=== PATIENT | female | born 1970 | race Caucasian/White ===

== ENCOUNTER 2016-08-17 20:59 | Emergency (ER) | payer MEDICAID ==
[~2016-08-17] VITALS: Ht 157.5 cm; Wt 67.0 kg
[~2016-08-17 20:59] MED LIST: HYDR-3498 PO; IBUP-1542 PO
[2016-08-17 21:03] VITALS: Ht 157.5 cm; Wt 67.0 kg
[2016-08-17] MEDS ORDERED: LIDOCAINE 1% (MDV) 20 ML INJ SC ONE (23:00)
--- NOTE | 2016-08-17 23:03 | ERD ---
ER Documentation Chief Complaint Date/Time DATE: 08/17/16 TIME: 22:59 Chief Complaint pain/swelling/redness left buttock x 5 days HPI 45-year-old female presents here in emergency department for complaints of left buttock redness swelling and pain for 5 days. Patient described the pain as throbbing pain, 6/10 scale, is worse upon sitting down. Patient did not take any medications to help with symptoms. Patient denies any fever or chills. Patient denies any rectal pain. Patient denies any constipation. Patient denies any blood in his stool or black stool. Patient denies any redness or swelling of the body. ROS All systems reviewed and are negative except as per history of present illness. Medications Home Meds Active Scripts Hydrocodone Bit-Acetaminophen* ([place]*) 5-325 Mg Tab, 1 TAB PO Q6 Y for PAIN, # 7 TAB Prov:PILI HERNANDEZ PA-C 11/19/15 Ibuprofen* (Motrin*) 600 Mg Tab, 600 MG PO Q6, #20 TAB Prov:PILI HERNANDEZ PA-C 11/19/15 Allergies Allergies: Coded Allergies: No Known Drug Allergies (Verified Allergy, Unknown, 08/17/16) PMhx/Soc Medical and Surgical Hx: pt denies Medical Hx, pt denies Surgical Hx History of Surgery: No Anesthesia Reaction: No Hx Neurological Disorder: No Hx Respiratory Disorders: No Hx Cardiac Disorders: No Hx Psychiatric Problems: No Hx Miscellaneous Medical Probl: No Hx Alcohol Use: No Hx Substance Use: No FmHx Family History: No coronary disease, No diabetes, No other Physical Exam Vitals Vital Signs Date Time Temp Pulse Resp B/P Pulse Ox O2 Delivery O2 Flow Rate FiO2 08/17/16 21:03 98.1 96 20 109/74 98 Physical Exam GENERAL: The patient is well developed and appropriate for usual state of health, in no apparent distress. CHEST: Clear to auscultation bilaterally. There are no rales, wheezes or rhonchi. HEART: Regular rate and rhythm. No murmurs, clicks, rubs or gallops. No S3 or S4. ABDOMEN: Soft, nontender and nondistended. Good bowel sounds. No rebound or guarding. No gross peritonitis. No gross organomegaly or masses. No Jean sign or McBurney point tenderness. BACK: No midline or flank tenderness. EXTREMITIES: Equal pulses bilaterally. There is no peripheral clubbing, cyanosis or edema. No focal swelling or erythema. Full range of motion. Grossly neurovascularly intact. NEURO: Alert and oriented. Cranial nerves 2-12 intact. Motor strength in all 4 extremities with 5/5 strength. Sensation grossly intact. Normal speech and gait. SKIN: Noted 3 cm diameter erythematous indurated area on the left buttock, fluctuant, tender on palpation. There is no apparent ecchymosis or petechia. The skin is warm and dry. HEMATOLOGIC AND LYMPHATIC: There is no evidence of excessive bruising or lymphedema. No gross cervical, axillary, or inguinal lymphadenopathy. Results 24 hrs Current Medications Medications (Trade) Dose Ordered Sig/Gerardo Route PRN Reason Start Time Stop Time Status Last Admin Dose Admin Lidocaine (Xylocaine 1% (Mdv) 20 ml) 2 ml ONCE ONCE SC 08/17/16 23:00 08/17/16 23:01 DC Procedures/MDM Procedure Note: After obtaining informed consent, the wound was irrigated with 250 ml of normal saline and cleaned with diluted betadine. Using aseptic technique, 3 ml of 1% lidocaine was injected on the subcutaneous tissue of the abscess where the fluctuant area is at. After the anesthetic, a 2 cm incision was done in the middle of the fluctuant area of the abscess. Pustular discharge was drained from the abscess. The abscess wound was loosely packed with iodoform dressing. After the procedure, dry dressing was applied on the area. Patient tolerated procedure well. Medical decision making: Patient symptoms are most likely consistent with soft tissue abscesses, perirectal abscess. Patient did not have any symptoms of sepsis at this time. Patient appears well and is hemodynamically stable. Prescription was given for Keflex, Bactrim, ibuprofen and [place], is advised to apply warm compresses on affected area, return in 2 days for reevaluation of symptoms, changing of dressing. Patient is advised to return to emergency department for any worsening symptoms. Departure Diagnosis: Primary Impression: Perirectal abscess Condition: Stable Patient Instructions: Abscess (, Incision And Drainage) Additional Instructions: Prescription was given for Keflex, Bactrim, ibuprofen and [place], is advised to apply warm compresses on affected area, return in 2 days for reevaluation of symptoms, changing of dressing. Patient is advised to return to emergency department for any worsening symptoms. NICOLE WELLS NP Aug 17, 2016 23:03
[2016-08-17] MEDS ORDERED: IBUP-1542 PO (23:32)
[2016-08-17] MEDS ORDERED: BACTDS PO (23:32)
[2016-08-17] MEDS ORDERED: CEPH-443 PO (23:32)
[2016-08-17] MEDS ORDERED: HYDR-906 PO (23:32)
[2016-08-17] MEDS ORDERED: ONDA4TAB14 PO (23:36)
[2016-08-17 23:50] VITALS: BP 118/77; PULSE 77; RESP 18; TEMP 98.3
== END 2016-08-17 23:51 | disposition home or self-care (01) ==
LOC: FTE 20:59
DX: K61.1 Rectal abscess (principal)
CPT/HCPCS: 46040; Z7502; Z7610

== ENCOUNTER 2016-08-20 09:55 | Emergency (ER) | payer MEDICAID ==
[~2016-08-20] VITALS: Wt 71.0 kg
[~2016-08-20 09:55] MED LIST changes: +BACTDS PO; +CEPH-443 PO; +HYDR-906 PO; +ONDA4TAB14 PO
--- NOTE | 2016-08-20 11:07 | ERD ---
ER Documentation Chief Complaint Date/Time DATE: 08/20/16 TIME: 11:06 Chief Complaint RECHECK OF ABSCESS HPI 45 y/o female presents to ED for wound check to her left gluteal area. Was here last Sunday for incision and drainage of her abscess with packing, discharge with Keflex and Bactrim. States it is her previous packing fell off. Denies headache, loss of consciousness, dizziness, blurry vision, changes in vision, photophobia, facial pain, ear pain, throat pain, difficulty swallowing, neck pain, shoulder pain, chest pain, cough, hemoptysis, abdominal pain, back pain, loss of appetite, nausea, vomiting, hematochezia, diarrhea, constipation, urinary symptoms, , the possibility of being , bladder and bowel incontinences, extremity weakness, extremity tenderness, numbness or tingling sensation, difficulty walking, recent travel, recent exposure to illness, recent antibiotic use in the last 3 months, fever, chills. Allergy: NKA PMH: Denies Family medical history: Denies AO LMP:" 10 days ago." Medications: Keflex, Bactrim Surgery: C-sections 2 Primary Social History: Denies Denies smoking, use of alcohol, use of illegal drugs. ROS All systems reviewed and are negative except as per history of present illness. Medications Home Meds Active Scripts Ondansetron (Ondansetron Odt) 4 Mg Tab.rapdis, 4 MG PO Q8 Y for NAUSEA AND/OR VOMITING, #30 TAB Prov:NICOLE WELLS NP 08/17/16 Hydrocodone/Acetaminophen ([place] 5-325 Tablet) 1 Each Tablet, 1 TAB PO Q6H Y for SEVERE PAIN LEVEL 7-10, #20 TAB Prov:NICOLE WELLS NP 08/17/16 Ibuprofen* (Motrin*) 600 Mg Tab, 600 MG PO Q6H Y for PAIN AND OR ELEVATED TEMP, #30 TAB Prov:NICOLE WELLS NP 08/17/16 Sulfamethoxazole-Trimethoprim* (Bactrim* DS) 800-160 Mg Tab, 1 TAB PO BID for 10 Days, TAB Prov:NICOLE WELLS NP 08/17/16 Cephalexin* (Keflex*) 500 Mg Capsule, 500 MG PO QID for 10 Days, CAP Prov:NICOLE WELLS [employer] SAL[employer]PRESENTATIVE 08/17/16 Hydrocodone Bit-Acetaminophen* ([place]*) 5-325 Mg Tab, 1 TAB PO Q6 Y for PAIN, # 7 TAB Prov:PILI HERNANDEZ PA-C 11/19/15 Ibuprofen* (Motrin*) 600 Mg Tab, 600 MG PO Q6, #20 TAB Prov:PILI HERNANDEZ PA-C 11/19/15 Allergies Allergies: Coded Allergies: No Known Drug Allergies (Verified Allergy, Unknown, 08/17/16) PMhx/Soc History of Surgery: No Anesthesia Reaction: No Hx Neurological Disorder: No Hx Respiratory Disorders: No Hx Cardiac Disorders: No Hx Psychiatric Problems: No Hx Miscellaneous Medical Probl: No (DENIES MED AND SURG HX.) Hx Alcohol Use: No Hx Substance Use: No Hx Tobacco Use: No Physical Exam Vitals Vital Signs Date Time Temp Pulse Resp B/P Pulse Ox O2 Delivery O2 Flow Rate FiO2 08/20/16 09:57 98.0 75 18 122/72 99 Physical Exam CONSTITUTIONAL: Well-appearing; well-nourished; in no apparent distress. HEAD: Normocephalic; atraumatic. EYES: Conjunctiva clear, sclera non-icteric, EOM intact. PERRL Ears: Hearing intact. EACs clear, TMs non-bulging, non-inflamed, translucent & mobile, ossicles normal appearance, No obstructions, no erythema, no discharges Nose: No obstructions. No polyps. No external lesions. Mucosa non-inflamed. No external lesions, septum and turbinates normal. No rhinorrhea. No discharges. Frontal sinus is non-tender to palpation. Maxillary sinus is non-tender to palpation. MOUTH: Moist mucous membranes, no lesion, no obstructions, no vesicles, no thrush, patent airway Throat: Uvula in midline. Right tonsil is +1 with no erythema, no exudate. Left tonsil is +1 with no erythema, no exudate. Tolerating secretions well. Good gag reflex. Patent airway. Neck: Supple, without lesions, bruits, or adenopathy. No mass. Thyroid non- enlarged and non-tender to palpation. CHEST: Symmetrical chest. Respirations even and not labored. No retractions noted. CARDIOVASCULAR: Normal S1, S2. RRR. No murmurs, gallops. RESPIRATORY: Normal chest excursion with respiration; breath sounds clear and equal bilaterally; no wheezes, rhonchi, or rales. Breathing even and unlabored. Speaking in clear, full, and complete sentences w/ ease. ABDOMEN: Normal bowel sounds normal. Soft, round, non-distended, non-guarding, no tenderness, no rebound, no organomegaly, no masses, no pulsating abdominal mass. No hernia. No peritoneal signs. : No CVA tenderness. BACK: Symmetrical shoulder. Spine is midline without deformity, tenderness. No evidence of trauma or deformity. PELVIS: Stable pelvis. No evidence of trauma or deformity. MUSCULOSKELETAL: Normal gait and station. No misalignment, asymmetry, crepitation, defects, tenderness, masses, effusions, decreased range of motion, instability, atrophy or abnormal strength or tone in the head, neck, spine, ribs , pelvis or extremities. No calf tenderness. NEUROVASCULAR: Distal pulses are present. Pedal pulse are present, equal, and normal. Capillary refills are < 2 seconds. NEUROLOGIC: Alert and oriented x4. Speaks full and clear sentences. Cranial Nerves II-XII normal. Sensation to pain, touch, and proprioception normal. Grossly unremarkable. No neurologic deficits. Romberg test is negative. PSYCHOLOGICAL: The patients mood and manner are appropriate. No hallucinations , delusions. Not SI. Not HI. Has the capacity to decide for self SKIN: Normal for age and ethnicity; warm; dry; good turgor; no apparent lesions or exudates. No rashes, hives, discoloration. Incision and drainage with packing site on left inner gluteal area. No bleeding. Mild greenish discharge. Patient states that it has gotten better. Procedures/MDM Examination: Unremarkable examination except Disease process, medical treatment was explained to the patient and family member. They verbalized understanding and agreed with the diagnostic tests, medical treatment, and follow-up care. Treatment: Repacked wound Re-evaluation: Unremarkable no active bleeding. Consultation: None Differential diagnosis: Wound check. Medical decision makin-year-old female who came in for a check for her abscess on her left inner gluteal area, incision and drainage with packing last Sunday. States that her previous packing fell off. No no bleeding. Mild yellowish discharge. Medications prescribed are the following: Continue taking Keflex and Bactrim. Patient and family member are made aware of the side effects and adverse reactions of the medications prescribed. Instructed on when to seek emergent and medical attention in case allergic/anaphylactic reactions or severe side effects and or adverse reactions to medications. Patient and family member verbalized understanding. Patient instructed Instructed to follow-up with his PCP in 24-48 hours. Come back to emergency room in 2-3 days for a wound check. Continue taking Keflex, Bactrim. Instructed to Call 911 for chest pain, shortness of breath. Advised to come back here in ED as soon as possible for severity of symptoms which includes but not limited to: any new symptoms; shortness of breath/difficulty of breathing; cardiovascular changes; severe gastrointestinal symptoms; signs and symptoms of bleeding and or infection; signs of compartment syndrome/neurovascular changes; neurological changes/deficits. Patient and family member verbalized understanding. Upon discharge, patient is alert and oriented x 4, speaks full and clear sentences, denies pain, has no neurological deficits, has no neurovascular deficits, difficulty of breathing. Breathing even and unlabored. Lung sounds are clear to auscultation. Not in distress. Appears comfortable. Ambulatory with steady gait. No signs and symptoms of bleeding and/or obvious infection. Appears satisfied with care provided here in ED. Departure Diagnosis: Primary Impression: Wound check, abscess Condition: Good Patient Instructions: Abscess, Incision And Drainage Additional Instructions: Patient instructed Instructed to follow-up with his PCP in 24 hours. Compacted emergency room in 2 -3 days for a wound check. Instructed to Call 911 for chest pain, shortness of breath. Advised to come back here in ED as soon as possible for severity of symptoms which includes but not limited to: any new symptoms; shortness of breath/difficulty of breathing; cardiovascular changes; severe gastrointestinal symptoms; signs and symptoms of bleeding and or infection; signs of compartment syndrome/neurovascular changes; neurological changes/deficits. Patient and family member verbalized understanding. JUSTINA MARIE Aug 20, 2016 11:06
[2016-08-20 11:22] VITALS: BP 117/74; PULSE 84; RESP 18; TEMP 97.7
== END 2016-08-20 11:22 | disposition home or self-care (01) ==
LOC: FTE 09:55
DX: Z48.01 Encounter for change or removal of surgical wound dressing (principal)
CPT/HCPCS: 99281